=== PATIENT | female | born 1940 | race Caucasian/White ===

== ENCOUNTER → 2017-09-06 | Outpatient (CLI) | payer OTHER, BC ==
[~2017-09-06] MED LIST: ADVIL200 MG PO; AMBIEN10 MG PO; ATIVAN2 MG PO; GLUCOTROL XL10 MG PO; GLUCOTROL XL2.5 MG PO; HYDROCHLOROTHIA50 MG PO; METFORMIN HCL500 M4 PO; PROZAC20 MG PO; TENORMIN50 MG PO; TYLENOL EXTRA500 MG PO; ZYRTEC10 M3 PO
== END | disposition home or self-care (01) ==
LOC: MRI 13:50 → RAD 14:30 → MRI 14:30
DX: G93.9 Disorder of brain, unspecified (principal)
CPT/HCPCS: 70553